=== PATIENT | male | born 2000 | race Caucasian/White ===

== ENCOUNTER 2024-04-06 13:21 | Emergency (ER) | payer SELFPAY ==
[2024-04-06 13:23] VITALS: BP 139/76
--- NOTE | 2024-04-06 13:35 | ED.SKININJ ---
HPI-Injury
<Roselia Torres TECHNICAL RECRUITER - Last Filed: 04/06/24 13:36>
General
Chief Complaint: Skin Surface Trauma
Time Seen by Provider: 04/06/24 14:06
<Mario Mckeon Jr., PA-C - Last Filed: 04/06/24 17:06>
General
Source: patient
Exam Limitations: none
Nursing documentation reviewed up to this point in time: agreed with
History of Present Illness-Injury
Is this injury a work related problem?: Yes
Is pt an associate of [facility]?: No
Initial Injury comments:
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 This is the pinky finger of the left hand. His dominant hand is the right side. He is unsure when his last tetanus shot was he is agreeable
to getting a tetanus shot here. Otherwise he can feel his distal finger denies additional injuries. No history of immunosuppression.
ED Provider Triage
<Roselia Torres, TECHNICAL RECRUITER - Last Filed: 04/06/24 13:36>
-
Patient seen by provider in Triage?: Seen in Triage
Attestation: A medical screening examination has been initiated by a qualified medical provider. Based on the assessment performed at this time, it has been determined that an emergent medical condition may exist and the patient has been informed
that further medical evaluation and possible additional diagnostic testing may be needed.
HPI: 23-year-old male
GENERAL: Alert , in no apparent distress
EYE: No visual abnormalities.
NECK: Trachea midline
ENT: No visible abnormalities.
LUNGS: No acute respiratory distress
NEUROLOGICAL: Alert and oriented
SKIN: Skin intact. No visible changes.
MUSCULOSKELETAL: Moving extremities normally
PSYCH: Normal and appropriate interaction.
This is a medical evaluation conducted in person to initiate diagnostic evaluation and provide initial therapeutics. Please see further documentation by the treating clinician.
Review of Systems
<Mario Mckeon Jr., PA-C - Last Filed: 04/06/24 17:06>
Review of Systems
Allergies reviewed?: Yes
All Other Systems: ROS reviewed and negative except as documented in HPI and ROS
Phy Exam
<Mario Mckeon Jr., PA-C - Last Filed: 04/06/24 17:06>
Physical Exam
Physical Exam:
GENERAL: Alert , in no apparent distress
EYE: pupils equal and reactive
NECK: Supple, no significant adenopathy.
ENT: o/p clr, mmm.
CARDIAC: Regular rate and rhythm .
LUNGS: Clear breath sounds bilaterally, no acute respiratory distress, no wheezes/rales/rhonchi
ABDOMEN: Soft, without focal tenderness, no r/g, no cvat
NEUROLOGICAL: Alert and oriented, no focal neuro deficits
SKIN: Circumferential laceration to the distal left pinky finger just distal to the DIP the matrix of the nail is pulled out of place. No visible tendon injury. Patient able to move in a general sense of the distal interphalangeal joint. Warm and
dry, skin intact.
MUSCULOSKELETAL: No edema, well perfused.
PSYCH: Normal and appropriate interaction.
Course
<Roselia Torres TECHNICAL RECRUITER - Last Filed: 04/06/24 13:36>
Orders/Labs/Results
Orders:
Orders
04/06/24 13:25
CR Hand - Left Min 3 Views Urgent
Comment:
Reason For Exam: injury
04/06/24 14:54
CeFAZolin 2 GRAM [Ancef] 2 grams in 10 ml IV NOW
04/06/24 16:22
Ondansetron Injectable [Zofran] 4 mg .ROUTE .STK-MED ONE
04/06/24 16:23
Morphine Sulfate 4 mg .ROUTE .STK-MED ONE
04/06/24 16:24
Morphine Sulfate 4 mg IV NOW STA
04/06/24 16:26
Ondansetron Injectable [Zofran] 4 mg IV NOW STA
04/06/24 16:46
Tetanus/Diphth/Acelpertussis [Adacel] 0.5 ml IM .ONCE ONE
Vital Signs
Initial and Last Documented VS:
Initial Vital Signs
Temp Pulse Resp BP Pulse Ox
98.8 F 98 20 139/76 98
04/06/24 13:23 04/06/24 13:23 04/06/24 13:23 04/06/24 13:23 04/06/24 13:23
Last Documented Vital Signs
Temp Pulse Resp BP Pulse Ox
98.8 F 82 20 127/82 98
04/06/24 13:23 04/06/24 16:51 04/06/24 16:51 04/06/24 16:51 04/06/24 16:51
<Loi Thornton, DO - Last Filed: 04/06/24 16:10>
Orders/Labs/Results
Orders:
Orders
04/06/24 13:25
CR Hand - Left Min 3 Views Urgent
Comment:
Reason For Exam: injury
04/06/24 14:54
CeFAZolin 2 GRAM [Ancef] 2 grams in 10 ml IV NOW
04/06/24 16:22
Ondansetron Injectable [Zofran] 4 mg .ROUTE .STK-MED ONE
04/06/24 16:23
Morphine Sulfate 4 mg .ROUTE .STK-MED ONE
04/06/24 16:24
Morphine Sulfate 4 mg IV NOW STA
04/06/24 16:26
Ondansetron Injectable [Zofran] 4 mg IV NOW STA
04/06/24 16:46
Tetanus/Diphth/Acelpertussis [Adacel] 0.5 ml IM .ONCE ONE
Vital Signs
Initial and Last Documented VS:
Initial Vital Signs
Temp Pulse Resp BP Pulse Ox
98.8 F 98 20 139/76 98
04/06/24 13:23 04/06/24 13:23 04/06/24 13:23 04/06/24 13:23 04/06/24 13:23
Last Documented Vital Signs
Temp Pulse Resp BP Pulse Ox
98.8 F 82 20 127/82 98
04/06/24 13:23 04/06/24 16:51 04/06/24 16:51 04/06/24 16:51 04/06/24 16:51
<Mario Mckeon Jr., PA-C - Last Filed: 04/06/24 17:06>
Orders/Labs/Results
Orders:
Orders
04/06/24 13:25
CR Hand - Left Min 3 Views Urgent
Comment:
Reason For Exam: injury
04/06/24 14:54
CeFAZolin 2 GRAM [Ancef] 2 grams in 10 ml IV NOW
04/06/24 16:22
Ondansetron Injectable [Zofran] 4 mg .ROUTE .STK-MED ONE
04/06/24 16:23
Morphine Sulfate 4 mg .ROUTE .STK-MED ONE
04/06/24 16:24
Morphine Sulfate 4 mg IV NOW STA
04/06/24 16:26
Ondansetron Injectable [Zofran] 4 mg IV NOW STA
04/06/24 16:46
Tetanus/Diphth/Acelpertussis [Adacel] 0.5 ml IM .ONCE ONE
Vital Signs
Initial and Last Documented VS:
Initial Vital Signs
Temp Pulse Resp BP Pulse Ox
98.8 F 98 20 139/76 98
04/06/24 13:23 04/06/24 13:23 04/06/24 13:23 04/06/24 13:23 04/06/24 13:23
Last Documented Vital Signs
Temp Pulse Resp BP Pulse Ox
98.8 F 82 20 127/82 98
04/06/24 13:23 04/06/24 16:51 04/06/24 16:51 04/06/24 16:51 04/06/24 16:51
Procedures
<Mario Mckeon Jr., PA-C - Last Filed: 04/06/24 17:06>
Laceration Closure
Left Distal Fifth Finger:
Status of Wound: dirty
Size of Wound in cm: 2.5
Description of Wound Edges: ragged
Preparation: cleaned with saline
Anesthesia: 1% Lidocaine and Digital-Regional
Revision/Debridement: routine- no revision
Wound exploration: explored to base- no FB
Skin Closure Material: 3-0 nylon
Number of sutures: 4
<Mario Mckeon Jr., PA-C - Last Filed: 04/06/24 17:06>
MDM/Problems Addressed
MDM/Problems Addressed:
23-year-old male presenting to the emergency department concerns of an injury to his left pinky finger. He has a circumferential laceration to the pinky finger and he was also found to have a distal tuft fracture on x-ray. He was given a dose of
Ancef and also written for cephalexin as prophylaxis. This was irrigated thoroughly with at least 300 cc of saline. This was loosely approximated with stitches upon orthopedics request he will see a hand surgeon tomorrow for additional assessment
and repair. This was discussed directly with orthopedics. X-ray was interpreted by myself.
<Mario Mckeon Jr., PA-C - Last Filed: 04/06/24 17:06>
*Critical Care Note
Total Time (30-74mins, 75-104mins- exclusive of procedures): Not Applicable
ED Attending Note
<Roselia Torres TECHNICAL RECRUITER - Last Filed: 04/06/24 13:36>
-
Portions of this chart may have been created with voice recognition software.� Occasional wrong word or��sound alike� substitutions may have occurred due to the inherent limitations of voice recognition software.
<Loi Thornton DO - Last Filed: 04/06/24 16:10>
ED Attending Note
Patient seen and examined by attending physician: Yes
I performed the substantive portion of visit, reviewed & personally made and approve the management plan that is documented in note by myself or ANNIE.: Yes
ED Attending Note:
seen with pa, agree with a/p , small finger injury, open fx,
Discharge Plan
Departure
Patient Disposition: Home (Routine Discharge)
Date of Disposition: 04/06/24
Time of Disposition: 16:44
Patient with high blood pressure during this ER visit?: No
Condition: Good
Covid-19: Not Applicable
Discharge Problem:
Avulsion of fingertip, Fracture of distal phalanx of finger
Instructions: Wound Care (DC), Laceration Repair With Stitches (DC)
Prescriptions:
New
cephalexin 500 mg capsule
500 mg PO QID 5 Days Qty: 20 0RF
No Action
albuterol sulfate 90 mcg/actuation Hfa Aerosol Inhaler
2 puff INHALATION R Q6HPRN PRN (Reason: sob/wheezing)
Referrals:
Kathie Ambriz MD [Family Provider] -
Jeromy Millan MD [Active] - Follow up in 5-7 days
Activity Restrictions/Additional Instructions:
You came to the emergency department today with concerns of a pinky finger injury. You are found have a distal tip avulsion. This was closed with 4 loose stitches please follow-up closely with the hand doctor tomorrow please call in the morning to
make an appointment for later in the day tomorrow
Interventions
Interventions:
*General Assessment Last Done: 04/06/24 13:23
*Neglect/Abuse Screening Last Done: 04/06/24 16:30
Discharge Date and Time
Print Language: CHINESE
[2024-04-06] MEDS: ANCEF 10 IV (16:15)
[2024-04-06] MEDS: MORPHINE SULFATE 4 MG IV (16:24)
[2024-04-06] MEDS: ZOFRAN 4 MG IV (16:26)
[2024-04-06 16:51] VITALS: BP 127/82
[2024-04-06] MEDS: ADACEL 0.5 ML IM (17:00)
[2024-04-06 17:19] VITALS: BP 127/82
== END 2024-04-06 17:20 | disposition home or self-care (01) ==
LOC: EMR 13:21
PROVIDERS: EMERGENCY PHYSICIAN Emergency Medicine; FAMILY PHYSICIAN Internal Medicine
DX: S62.637B Displaced fracture of distal phalanx of left little finger, initial encounter for open fracture (principal); W31.2XXA Contact with powered woodworking and forming machines, initial encounter; Z23 Encounter for immunization
CPT/HCPCS: 99284; 96374; 96375; 12001; 90471; 96372; 73130; 90715